=== PATIENT | female | born 1975 ===

== ENCOUNTER 2021-11-24 23:18 | Emergency (ER) | payer OTHER ==
--- OUTSIDE RECORDS SUMMARY | 2021-11-24 23:22 | XMS REPORT | Continuity of Care Document ---
:1975 Author Organization [facility] t Address [address] [place] [address] Care Team Providers Name Role Phone Wesley Attending Clinician Unavailable TERRELL_NAYELI_Francesco_Bhavana Attending Clinician Unavailable Selene Maya Attending Clinician Unavailable Taniya Attending Clinician Unavailable Michele Maya Attending Clinician [phone] Ivonne Dixon Attending Clinician Unavailable TERRELL_FAISAL_Cone_S Attending Clinician Unavailable ALEXIA Attending Clinician Unavailable Physician, Primary or Family Admitting Clinician Unavailabl e TERRELL_NAYELI_Francesco_Bhavana Admitting Clinician Unavailable Selene Maya Admitting Clinician Unavailable Ivonne Dixon Admitting Clinician Unavailable TERRELL_FAISAL_Cone_S Admitting Clinician Unavailable Payers Payer Name Policy Type Policy Number Effective Date Expiration Date [facility] [id number] Problems This patient has no known problems. Allergies, Adverse Reactions, Alerts Allergy Allergy Status Severity Reaction(s) Onset Inactive Treating Comm ents Source Name Type Date Date Clinician adhesive DA Active [facility] [place] latex DA Active [facility] [place] adhesive DA Active [facility] 3[facility] [place] latex DA Active [facility] [place] No Known DA Active U [facility]- [facility] Drug 1-04 [facility] [place] No Known DA Active U [facility] Contrast -04 [facility] [place] No Known DA Active U 2006- [facility] Drug -04 [facility] [place] No Known DA Active U 2006- [facility] Food 1-04 [facility] [place] TAPE DA Active U [facility] PLASTIC -04 [facility] [place] Medications This patient has no known medications. Procedures Procedure Date / Time Performed Performing Clinician Sour e [id number] 2021-10-19 00:00:00 [facility] [id number] 2021-10-19 00:00:00 [facility] [id number] 2021-10-19 00:00:00 [facility] [id number] 2021-10-19 00:00:00 [facility] [id number] 2021-10-19 00:00:00 [facility] [id number] 2021-10-19 00:00:00 [facility] Encounters Start End Encounter Admission Attending Care Care Encounter Source Date/Time Date/Time Type Type Clinicians Facility Department ID 2021-10-17 Inpatient EM MAL Olson [facility] [id number] [facility] 10:30:00 Ema [id number] [facility] 2021-11-06 2021-11-06 Outpatient GC_SWHAWPRC PRIV PRIV [id number] NPI:157 02:22:00 02:22:00 _Francesco_Bhavana [id number] 2021-11-04 2021-11-05 Inpatient EM MAL Maya MEDI.01 [id number] [facility] 07:22:00 10:58:00 Pedro 32 [facility] 2021-11-04 2021-11-05 Inpatient EM MAL Maya MEDI.01 [id number] [facility] 07:22:00 10:58:00 Pedro [id number] [facility] [place] 2021-11-03 2021-11-03 Emergency EM Taniya [facility] [id number] [facility] 21:42:00 21:42:00 Edu [id number] [facility] [place] 2021-10-26 2021-10-26 Outpatient [facility] PRIV PRIV [id number] NPI:157 03:24:00 03:24:00 _Fisher_H [id number] 2021-10-26 2021-10-26 Outpatient Francesco, PRIV PRIV [id number] [id number] 00:00:00 00:00:00 Pedro [id number] Michele [id number] 2021-10-24 2021-10-24 Outpatient [facility] PRIV PRIV [id number] NPI:157 02:56:00 02:56:00 _Fisher_H [id number] 2021-10-23 2021-10-23 Outpatient [facility] PRIV PRIV [id number] NPI:157 11:51:00 11:51:00 _Fisher_H [id number] 465 2021-10-23 2021-10-23 Outpatient Francesco PRIV PRIV [id number] 8-[id number] 00:00:00 00:00:00 Pedro [id number] [facility] [id number] [id number] 2021-10-21 2021-10-21 Inpatient EM Jamee Dixon [facility] MEDI.01 [id number] [facility] 06:12:00 21:01:00 21 [facility] [place] 2021-10-21 2021-10-21 Inpatient EM Jamee Dixon [facility] MEDI. [id number] [facility] 06:12:00 21:01:00 [id number] [facility] [place] 2021-10-19 2021-10-19 Inpatient EM Wesley [facility] MEDI. [id number] [facility] 12:01:00 09:03:00 Ema [id number] [facility] [place] 2021-10-17 2021-10-17 Outpatient [facility] PRIV PRIV [id number] NPI:157 04:20:00 04:20:00 _Fisher_H [id number] 2021-10-16 2021-10-16 Outpatient [facility] PRIV PRIV [id number] NPI:157 03:03:00 03:03:00 _Fisher_H 197348 [id number] 465 2021-10-15 2021-10-15 Inpatient EM Wesley, CHRISTIE OUTD [id number] [facility] 10:30:00 10:30:00 Ema [id number] [facility] 2021-10-15 2021-10-15 Outpatient GC_[facility] PRIV PRIV [id number] NPI:157 01:54:00 01:54:00 _Fisher_H [id number] 2021-10-15 2021-10-15 Outpatient Maya, PRIV PRIV [id number] e-a 00:00:00 00:00:00 Pedro ebb-11ec-b Michele [id number] 2021-10-15 2021-10-15 Outpatient Maya, PRIV PRIV [id number] 8-[id number] 00:00:00 00:00:00 Pedro [id number] [facility] [id number] 363virtua voorhees 2021-10-11 2021-10-11 Outpatient [facility] PRIV PRIV [id number] NPI:157 04:17:00 04:17:00 _Fisher_H [id number] 2021-10-10 2021-10-10 Outpatient GC_[facility] PRIV PRIV [id number] NPI:157 10:14:00 10:14:00 _Fisher_H 288753 [id number] 2021-10-08 2021-10-08 Outpatient GC_[facility] PRIV PRIV [id number] NPI:157 03:28:00 03:28:00 _Fisher_H [id number] 465 2021-10-08 2021-10-08 Outpatient Maya, PRIV PRIV [id number] e-a 00:00:00 00:00:00 Pedro [id number] [facility] [id number] 2021-10-03 Outpatient GC_[facility] PRIV PRIV [id number] NPI:157 03:32:00 03:32:00 _Fisher_H [id number] 2021-08-20 2021-08-20 Outpatient GC_[facility]WHAWPRC PRIV PRIV [id number] NPI:157 04:47:00 04:47:00 _Fisher_H 146907 [id number] 465 2021-08-13 2021-08-13 Outpatient GC_SWHATBIC PRIV PRIV [id number] NPI:157 12:01:00 12:01:00 _Cone_S [id number] 2021-07-19 2021-07-19 Outpatient ALEXIA [facility] [id number] [address] [place] 00:00:00 00:00:00 RAEANN 190 Method i 2021-07-19 2021-07-19 Outpatient ALEXIA [facility] [id number] [place] 00:00:00 00:00:00 RAEANN 160 Method i 2021-07-19 2021-07-19 Outpatient ALEXIA [facility] [id number] 921 [place] 00:00:00 00:00:00 RAEANN [address] 2021-07-05 2021-07-05 Outpatient ALEXIA [facility] [id number] 892 [place] 00:00:00 00:00:00 RAEANN [address] Results Test Description Test Time Test Comments Results Result Comments Source HGB HCT 2021-11-04 16:32:00 Test Item Value Reference Range Interpretation Comme nts HEMOGLOBIN (test code = HGB) 9.2 g/dL 10.1-13.8 L HEMATOCRIT (test code = HCT) 28.3 % 32.5-41.8 L HGB [id number] 07:07:00 Test Item Value Reference Range Interpretation Comments HEMOGLOBIN (test code = 6.8 g/dL 10.1-13.8 LL RESU LTS CALLED TO HGB) NERIS HARO BA CK & CONFIRMED? YBY F.LAB.KG 0706Results yue ified by repeat cuca sis HEMATOCRIT (test code = 21.2 % 32.5-41.8 L Resu lts verified by HCT) repeat analysis [id number] 03:18:00 Test Item Value Reference Range Interpretation Comments TROPONIN-I (test 7.1 pg/mL <51.4 N Please Note :New method is code = TROPI) in use for jason suring Troponin Jul 05 2021Units are pg/mL which differs from the prior testmethodology (ng/mL) by a factor of 100 0. CBC W/AUTO [id number] 02:52:00 Test Item Value Reference Range Interpretation Comments WHITE BLOOD CELL (test code = WBC) 9.8 K/mm3 6.5-12.3 N RED BLOOD CELL (test code = RBC) 2.86 M/mm3 3.51-4.69 L HEMOGLOBIN (test code = HGB) 9.1 g/dL 10.1-13.8 L HEMATOCRIT (test code = HCT) 28.3 % 32.5-41.8 L MEAN CELL VOLUME (test code = MCV) 99.0 fL 84.6-96.6 H MEAN CELL HGB (test code = MCH) 31.8 pg 27.3-33.9 N MEAN CELL HGB CONCETRATION (test 32.2 gm/dL 32.0-34.2 N code = MCHC) RED CELL DISTRIBUTION WIDTH (test 11.9 % 12.2-16.3 L code = RDW) PLATELET COUNT (test code = PLT) 379 K/mm3 134-363 H MEAN PLATELET VOLUME (test code = 10.9 fL 9.2-12.7 N MPV) NEUTROPHIL % (test code = NT%) 66.4 % 57.9-77.3 N LYMPHOCYTE % (test code = LY%) 22.7 % 14.5-29.7 N MONOCYTE % (test code = MO%) 9.1 % 3.6-10.2 N EOSINOPHIL % (test code = EO%) 0.6 % 0.0-3.0 N BASOPHIL % (test code = BA%) 0.9 % 0.1-0.9 N NEUTROPHIL # (test code = NT#) 6.5 K/mm3 LYMPHOCYTE # (test code = LY#) 2.2 K/mm3 MONOCYTE # (test code = MO#) 0.9 K/mm3 EOSINOPHIL # (test code = EO#) 0.06 K/mm3 BASOPHIL # (test code = BA#) 0.1 K/mm3 RBC MORPHOLOGY REQUIRED (test code NORMAL NORMAL = RBCM) PLATELET MORPHOLOGY REQUIRED (test NORMAL NORMAL code = PLTMR) - XR CHEST 1 [id number] 00:00:00 [facility] 1975 Sex: F Patient Name: KENYETTA TRONCOSO Unit No: [id number] EXAMS: CPT CODE: [id number] XR CHEST 1 V [id number] PROCEDURE INFORMATION: Exam: XR Chest Exam date and time: 11/04/2021 1:36 AM Age: 46 years old Clinical indication: Other: Tachy palpitations TECHNIQUE: Imaging protocol: XR of the chest. Views: 1 view. COMPARISON: CT ABD PELVIS W/CONT 10/21/2021 12:01 PM FINDINGS: Lungs: Inferior lungs are not included on the exam. The visualized lungs are clear. Pleural spaces: No pleural effusion. No pneumothorax. Heart/Mediastinum: Heart size is within normal limits. Vasculature is unremarkable. Bones/joints: No acute abnormality. IMPRESSION: No acute cardiopulmonary process identified. at 0202 Reported and signed by: Lalo Barraza MD CC: Edu Monahan DO Technologist: RT Leland Trnscrbd D/ (020) GCJonny.CPS Orig Print D/T: S: 11/04/2021 (0203) [facility] NAME: KENYETTA TRONCOSO Radiology Department PHYS: Edu Mosley DO [address] : 1975 AGE: 46 SEX: F [place], [place] [address] [id number] LOC: BILL PHONE #: [phone] EXAM DATE: 11/04/2021 STATUS: REG ER FAX #: [phone] [facility] NO: [id number] Page 1 Signed ReportBASIC METABOLIC [id number] 23:55:00 Test Item Value Reference Range Interpretation Comments SODIUM (test code = NA) 134 mEq/L 135-145 L POTASSIUM (test code = K) 3.6 mEq/L 3.5-5.0 N CHLORIDE (test code = CL) 99 mEq/L 100-115 L CARBON DIOXIDE (test code = CO2) 26 mEq/L 22-31 N ANION GAP (test code = GAP) 12.20 10-20 N GLUCOSE (test code = GLU) 131 mg/dL 65-110 H BLOOD UREA NITROGEN (test code = 12 mg/dL 7-18 N BUN) GLOMERULAR FILTRATION RATE (test 67 ml/min >60 N code = GFR) CREATININE (test code = CREAT) 0.9 mg/dL 0.5-1.0 N CALCIUM (test code = CA) 8.1 mg/dL 8.4-10.2 L PROTHROMBIN [id number] 23:46:00 Test Item Value Reference Range Interpretation Comments PROTHROMBIN TIME PATIENT (test code 13.4 secs 10.1-12.3 H = PTP) THROMBOPLASTIN TIME [id number] 23:46:00 Test Item Value Reference Range Interpretation Comments THROMBOPLASTIN TIME PARTIAL (test 32.0 secs 22-38 N code = PTT) CBC W/AUTO [id number] 23:40:00 Test Item Value Reference Range Interpretation Comments WHITE BLOOD CELL (test code = WBC) 7.5 K/mm3 6.5-12.3 N RED BLOOD CELL (test code = RBC) 3.56 M/mm3 3.51-4.69 N HEMOGLOBIN (test code = HGB) 11.2 g/dL 10.1-13.8 N HEMATOCRIT (test code = HCT) 33.5 % 32.5-41.8 N MEAN CELL VOLUME (test code = MCV) 94.1 fL 84.6-96.6 N MEAN CELL HGB (test code = MCH) 31.5 pg 27.3-33.9 N MEAN CELL HGB CONCETRATION (test 33.4 gm/dL 32.0-34.2 N code = MCHC) RED CELL DISTRIBUTION WIDTH (test 11.7 % 12.2-16.3 L code = RDW) PLATELET COUNT (test code = PLT) 628 K/mm3 134-363 H MEAN PLATELET VOLUME (test code = 10.5 fL 9.2-12.7 N MPV) NEUTROPHIL % (test code = NT%) 58.1 % 57.9-77.3 N LYMPHOCYTE % (test code = LY%) 25.4 % 14.5-29.7 N MONOCYTE % (test code = MO%) 13.4 % 3.6-10.2 H EOSINOPHIL % (test code = EO%) 1.5 % 0.0-3.0 N BASOPHIL % (test code = BA%) 1.1 % 0.1-0.9 H NEUTROPHIL # (test code = NT#) 4.4 K/mm3 LYMPHOCYTE # (test code = LY#) 1.9 K/mm3 MONOCYTE # (test code = MO#) 1.0 K/mm3 EOSINOPHIL # (test code = EO#) 0.11 K/mm3 BASOPHIL # (test code = BA#) 0.1 K/mm3 RBC MORPHOLOGY REQUIRED (test code NORMAL NORMAL = RBCM) PLATELET MORPHOLOGY REQUIRED (test NORMAL NORMAL code = PLTMR) [id number] 17:31:00 Test Item Value Reference Range Interpretation Comments SURGICAL (test code = SR) R UN DATE: 10/22/21 [facility] PAGE 1 RUN TIME: 1731 Specimen Inquiry RUN USER: INTERFACE P ATIENT: KENYETTA TRONCOSO LOC: JESSICA #: [id number] AGE/SX: 45/F ROOM: [facility] RE10/21/21REG DR: Jamee Dixon MD : 71 BED: A DIS: 10/21/21 STATUS: DIS IN TLOC: SPEC #: [id number] RECD: 10/19/21 STATUS: [place] #: [id number] DARIELA: 10/19/[address]: Ema Olson MD ENTERED: 10/19/21 SP TYPE: SURGICAL OTHR DR: No Primary or Family Physician Pedro Maya MDORDERED: ANATOMIC SPEC, SPEC TRACK, [id number] COPIES TO: No Primary or Family Physician Ema Olson MD [address] [id number] Pedro Maya MD [address] [id number] PROCEDURES: [id number] (10/19/21) TISSUES: A. UTERUS W/WO TUBES OVARIES NON NEOPLASTIC/PROLAPSE - UTERUS CERVIX TUBES FINAL DIAGNOSIS UTERUS AND BILATERAL FALLOPIAN TUBES, HYSTERECTOMY WITH BILATERAL SALPINGECTOMY:- weakly proliferative endometrium; negative for hyperplasia or malignancy. - adenomyosis.- cervix with the nabothian cysts, mild acute and chronic inflammation; negative fordysplasia or malignancy.- bilateral fallopian tubes with no diagnostic abnormalities. GROSS DESCRIPTION Received in formalin labeled with the patient's name, MRN, date of , "uterus, cervixand tubes" consists of a hysterectomy specimen with attached fallopian tubes weighing 132g. The uterus measures 9 x 6 x 5.4 cm and has a 3.5 x 3.5 cm smooth white ectocervix witha 1 cm slit-like os and a 3 cm endocervical canal. Bivalving reveals a hemorrhagic 5 x 3.5cm endometrial cavity with an endometrial thickness of 0.1 cm. There are focal punctatehemorrhages within the myometrium. The serosal surface is larsen pink and smooth. Thefallopian tubes measure 5.5 x 0.5 cm and are unremarkable. Manager Intermediate sections are submitted as follows: A1 anterior cervix, A2 anterior loweruterine segment, A3 anterior endomyometrium, A4 posterior cervix, A5 posterior loweruterine segment, A6 posterior endomyometrium, A7 myometrium with punctate hemorrhage, A8 CONTINUED ON NEXT PAGE R UN DATE: 10/22/21 [facility] PAGE 2 RUN TIME: 1732 Specimen Inquiry RUN USER: INTERFACE S PEC #: [id number] PATIENT: TRONCOSOKENYETTA KAE #[id number] (Continued) GROSS DESCRIPTION (Continued) right fallopian tube, A9 left fallopian tube. Technical component performed at [facility],[address], [place] [address] Unless gross only, the diagnosis is based upon microscopic examination.Immunohistochemistr y: This test was developed and its performance characteristicsdetermined by this laboratory. It has not been approved nor does it need approval by [place] FDA. Appropriate positive and negative controls are reviewed and judged to beacceptable. This laboratory is certified under the Clinical Laboratory ImprovementAmendments (CLIA-88) as qualified to perform high complexity clinical laboratory testing. CLINICAL INFORMATION TIME OUT OF BODY 1310, TIME IN FORMALIN 1420, ANONYMOUS PELVIC PAIN, ---- Signed SIGNATURE ON FILE Joan Sanchez 10/22/21 1731 END OF REPORT COMPREHENSIVE METABOLIC [id number] 11:42:00 Test Item Value Reference Range Interpretation Comments SODIUM (test code = NA) 137 mEq/L 135-145 N POTASSIUM (test code = K) 3.7 mEq/L 3.5-5.0 N CHLORIDE (test code = CL) 100 mEq/L 100-115 N CARBON DIOXIDE (test code = CO2) 33 mEq/L 22-31 H ANION GAP (test code = GAP) 7.30 10-20 L GLUCOSE (test code = GLU) 121 mg/dL 65-110 H BLOOD UREA NITROGEN (test code = 6 mg/dL 7-18 L BUN) GLOMERULAR FILTRATION RATE (test 90 ml/min >60 N code = GFR) CREATININE (test code = CREAT) 0.7 mg/dL 0.5-1.0 N TOTAL PROTEIN (test code = PROT) 6.1 gm/dL 6.3-8.2 L ALBUMIN (test code = ALB) 3.0 gm/dL 3.4-4.8 L CALCIUM (test code = CA) 7.3 mg/dL 8.4-10.2 L BILIRUBIN TOTAL (test code = BILT) 0.3 mg/dL 0.2-1.0 N SGOT/AST (test code = AST) 27 units/L 15-37 N SGPT/ALT (test code = ALT) 21 units/L 12-78 N ALKALINE PHOSPHATASE TOTAL (test 47 units/L 46-116 N code = ALKP) CBC W/AUTO [id number] 05:45:00 Test Item Value Reference Range Interpretation Comments WHITE BLOOD CELL (test code = WBC) 7.6 K/mm3 6.5-12.3 N RED BLOOD CELL (test code = RBC) 3.10 M/mm3 3.51-4.69 L HEMOGLOBIN (test code = HGB) 9.9 g/dL 10.1-13.8 L HEMATOCRIT (test code = HCT) 31.5 % 32.5-41.8 L MEAN CELL VOLUME (test code = MCV) 101.6 fL 84.6-96.6 H MEAN CELL HGB (test code = MCH) 31.9 pg 27.3-33.9 N MEAN CELL HGB CONCETRATION (test 31.4 gm/dL 32.0-34.2 L code = MCHC) RED CELL DISTRIBUTION WIDTH (test 12.7 % 12.2-16.3 N code = RDW) PLATELET COUNT (test code = PLT) 206 K/mm3 134-363 N MEAN PLATELET VOLUME (test code = 10.9 fL 9.2-12.7 N MPV) NEUTROPHIL % (test code = NT%) 69.6 % 57.9-77.3 N LYMPHOCYTE % (test code = LY%) 17.2 % 14.5-29.7 N MONOCYTE % (test code = MO%) 11.5 % 3.6-10.2 H EOSINOPHIL % (test code = EO%) 0.7 % 0.0-3.0 N BASOPHIL % (test code = BA%) 0.7 % 0.1-0.9 N NEUTROPHIL # (test code = NT#) 5.3 K/mm3 LYMPHOCYTE # (test code = LY#) 1.3 K/mm3 MONOCYTE # (test code = MO#) 0.9 K/mm3 EOSINOPHIL # (test code = EO#) 0.05 K/mm3 BASOPHIL # (test code = BA#) 0.1 K/mm3 RBC MORPHOLOGY REQUIRED (test code NORMAL NORMAL = RBCM) PLATELET MORPHOLOGY REQUIRED (test NORMAL NORMAL code = PLTMR) - CT ABD PELVIS [id number] 00:00:00 [facility] 1975 Sex: F Patient Name: KENYETTA TRONCOSO Unit No: [id number] EXAMS: CPT CODE: [id number] CT ABD PELVIS W/CONT 93130 Radiation Dose CTDIVOL = 4.45 (mGy): DLP = 232.17 (mGy-cm) PROCEDUREINFORMATION: Exam: CT Abdomen And Pelvis With Contrast Exam date and time: 10/21/2021 12:01 PM Age: 45 years old Clinical indication: Abdominal pain; Additional info: Uncontrolled pain; Historyof cervical dysplasia and abnormal uterine bleeding with total laparoscopic hysterectomy and bilateral salpingectomy on 10/19/2021 TECHNIQUE: Imaging protocol: Computed tomography of the abdomen and pelvis with contrast. Radiation optimization: All CT scans at this facility use at least one of these dose optimization techniques: automated exposure control; mA and/or kV adjustment per patient size (includes targeted exams where dose is matched to clinical indication); or iterative reconstruction. Contrast material: ISOVUE 300; Contrast volume: 100 ml; Contrast route: INTRAVENOUS (IV); COMPARISON: No relevant prior studies available. RADIATION DOSE METRICS: CTDI volume (mGy): 4.45 Total DLP (mGy-cm): 232.17 FINDINGS: Lungs: Mild bilateral subpleural platelike atelectasis with no pulmonary edema or consolidation. Pleural spaces: No pleural effusion. No pneumothorax. Heart: No pericardial thickening or effusion. Liver: No cirrhotic change or enhancing liver lesion. Gallbladder and bile ducts: No calcified stones. No ductal dilation. Pancreas: No focal pancreatic lesion. Spleen: Unremarkable spleen. Adrenal glands: No adrenal lesions. Kidneys and ureters: Bilateral nonobstructive nephrolithiasis without ureteral calculi, hydronephrosis or hydroureter. No [facility] NAME: KENYETTA TRONCOSO Radiology Department PHYS: Amy Fallon MD [address] : 1975 AGE: 45 SEX: F [place], [place] [address] LOC: F.2600 A PHONE #: [phone] EXAM DATE: 10/21/2021 STATUS: ADM IN FAX #: [phone] RAD NO: [id number] Page 1 Signed Report 1 Patient Name: KENYETTA TRONCOSO Unit No: [id number] EXAMS: CPT CODE: [id number] CT ABD PELVIS W/CONT 40914 <Continued> enhancing renal lesions. Stomach and bowel: Large volume colonic fecal material diffusely. Appendix: No evidence of appendicitis. Intraperitoneal space: Moderate volume pneumoperitoneum outlining the anterior perihepatic space and falciform ligament in a patient with known recent laparoscopic surgery. Vasculature: Unremarkable. No abdominal aortic aneurysm. Lymph nodes: No adenopathy. Urinary bladder: The bladder is decompressed with a Pérez catheter. Reproductive: Hysterectomy/BSO changes in keeping with recent surgical history. An approximately 5.8 x 5.5 x 4.5 cm (75 cc) intermediate density collection is noted at the hysterectomy bed. No active extravasation or pseudoaneurysm seen by CT. Bones/joints: Low volume hypodense free pelvic fluid with severe bilateral pelvic wall andpre sacral edema. No destructive bone lesions. Mild spondylosis at the lower thoracic spine. Soft tissues: Partially imaged bilateral breast augmentation with no visible complication. Other f indings: Low volume postoperative edema and air is seen involving the mons pubis in keeping with recent surgery without organized fluid collection. IMPRESSION: 1. Hysterectomy and bilateral salpingo-oophorectomy with roughly 5.8 cm deep pelvic hematoma at the hysterectomy bed. 2. No active extravasation or pseudoaneurysm noted by CT. 3. Bilateral pelvic wall and presacral soft tissue edema in keeping with recent procedure. 4. Residual moderate volume postoperative pneumoperitoneum to be followed to resolution. No signs of peritonitis. 5. Bilateral nonobstructive nephrolithiasis. 6. Constipation. at 1344 Reported and signed by: Anjel Gonzalez MD [facility] NAME: KENYETTA TRONCOSO Radiology Department PHYS: Amy Fallon MD [address] : [birth year] AGE: 45 SEX: F [place] [address] LOC: F.2600 A PHONE #: [phone] EXAM DATE: 10/21/2021 STATUS: ADM IN FAX #: [phone] RAD NO: [id number] Page 2 Signed Report 1 Patient Name: KARYNAKENYETTA PAL Unit No: [id number] EXAMS: CPT CODE: [id number] CT ABD PELVIS W/CONT 93215 <Continued> CC: Ema Olson MD; Jamee Dixon MD; Amy Carrington MD Technologist: Tigre Huitron, RT CTDI: 4.45 DLP: 232.17 Trnscrbd D/ (1344) GCD.CPS [facility] NAME: TRONCOSOKENYETTA Radiology Department PHYS: Amy Fallon MD [address] : 1975 AGE: 45 SEX: F [place] [address] LOC: F.2600 A PHONE #: [phone] EXAM DATE: 10/21/2021 STATUS: ADM IN FAX #: [phone] RAD NO: [id number] Page 3 Signed Report 1 Patient Name: KARYNAKENYETTA KAE Unit No: [id number] EXAMS: CPT CODE: [id number] CT ABD PELVIS W/CONT 99083 <Continued> Orig Print D/T: S: 10/21/2021 (1345) [facility] NAME: KENYETTA TRONCOSO Radiology Department PHYS: Amy Fallon MD [address] : 1975 AGE: 45 SEX: F [place], [place] [address] LOC: FManuel A PHONE #: [phone] EXAM DATE: 10/21/2021 STATUS: ADM IN FAX #: [phone] RAD NO: [id number] Page 4 Signed Report 1HGB [id number] 04:45:00 Test Item Value Reference Range Interpretation Comments HEMOGLOBIN (test code = HGB) 10.2 g/dL 10.1-13.8 N HEMATOCRIT (test code = HCT) 31.6 % 32.5-41.8 L T3 [id number] 19:17:00 Test Item Value Reference Range Interpretation Comments T3 FREE (test code = T3F) 2.40 pg/mL 2.18-3.98 N : *(Hit ENTER to Con't) .T4 [id number] 19:17:00 Test Item Value Reference Range Interpretation Comments T4 FREE (test code = T4F) 1.61 ng/dL 0.76-1.46 H : *(Hit ENTER to Con't) .COVID 19 Asymptomatic IH [id number] 22:41:00 Test Item Value Reference Range Interpretation Comments COVID 19 NEGATIVE NEGATIVE This test has b een Asymptomatic IH AG authorize d only for the (test code = detection ofpro teins from COVNONPUIAG) SARS-CoV-2, not for any other viruses orpathogens. N egative results should be treated as presumptive andconfirmed wi th a molecular assay , if necessary for patientmanageme nt. Negative result s do not rule out COVID- 19 andshould not b e used as the sole basis for treatment orpat ient management deci sions, including infec tion controldecision s. Negative result s should be considered i n thecontext of a patient's recent exposure s, history and thepresence of clinical signs and symptoms consis tent withCOVID-19. T his test has not been FD A cleared or approved; th e test hasbeen authorjacky orr by FDA under an Emerge ncy Use Authorization(E UA) for use by elo joel certified under the CLIA thatmeet the re quirements to perform mode rate, high or waivedcomple xity tests. This ana t is authorized for use at thePoint of Car e (POC), i.e., in patien t care settingsoperati ng under a CLIA Certificat e of Waiver, Certifi jaguar ofCompliance, o r Certificate of Accreditation. This test is only authori kirby for the duration of thedeclaration that circumstances e xist justifying theauthorizatio n of emergency use o f in vitro diagnostic test sfor detection and/o r diagnosis of CO VID-19 under Etnqtsp70 4(b)(1) of the Act, 21 U.S .C. 360bbb-3(b)(1), unless theauthorizatio n is terminated or r evoked sooner. CBC W/AUTO [id number] 16:49:00 Test Item Value Reference Range Interpretation Comments WHITE BLOOD CELL (test code = WBC) 7.4 K/mm3 6.5-12.3 N RED BLOOD CELL (test code = RBC) 4.26 M/mm3 3.51-4.69 N HEMOGLOBIN (test code = HGB) 13.5 g/dL 10.1-13.8 N HEMATOCRIT (test code = HCT) 41.8 % 32.5-41.8 N MEAN CELL VOLUME (test code = MCV) 98.1 fL 84.6-96.6 H MEAN CELL HGB (test code = MCH) 31.7 pg 27.3-33.9 N MEAN CELL HGB CONCETRATION (test 32.3 gm/dL 32.0-34.2 N code = MCHC) RED CELL DISTRIBUTION WIDTH (test 12.7 % 12.2-16.3 N code = RDW) PLATELET COUNT (test code = PLT) 339 K/mm3 134-363 N MEAN PLATELET VOLUME (test code = 11.7 fL 9.2-12.7 N MPV) NEUTROPHIL % (test code = NT%) 69.6 % 57.9-77.3 N LYMPHOCYTE % (test code = LY%) 19.3 % 14.5-29.7 N MONOCYTE % (test code = MO%) 9.4 % 3.6-10.2 N EOSINOPHIL % (test code = EO%) 0.8 % 0.0-3.0 N BASOPHIL % (test code = BA%) 0.8 % 0.1-0.9 N NEUTROPHIL # (test code = NT#) 5.1 K/mm3 LYMPHOCYTE # (test code = LY#) 1.4 K/mm3 MONOCYTE # (test code = MO#) 0.7 K/mm3 EOSINOPHIL # (test code = EO#) 0.06 K/mm3 BASOPHIL # (test code = BA#) 0.1 K/mm3 RBC MORPHOLOGY REQUIRED (test code NORMAL NORMAL = RBCM) PLATELET MORPHOLOGY REQUIRED (test NORMAL NORMAL code = PLTMR) HCG SERUM [id number] 16:06:00 Test Item Value Reference Range Interpretation Comments HCG SERUM QUAL (test code = HCGQL) NEGATIVE PROTHROMBIN [id number] 15:55:00 Test Item Value Reference Range Interpretation Comments PROTHROMBIN TIME PATIENT (test code 10.6 secs 10.1-12.3 N = PTP) THROMBOPLASTIN TIME [id number] 15:55:00 Test Item Value Reference Range Interpretation Comments THROMBOPLASTIN TIME PARTIAL (test 32.8 secs 22-38 N code = PTT) BASIC METABOLIC [id number] 15:33:00 Test Item Value Reference Range Interpretation Comments SODIUM (test code = NA) 137 mEq/L 135-145 N POTASSIUM (test code = K) 4.1 mEq/L 3.5-5.0 N CHLORIDE (test code = CL) 100 mEq/L 100-115 N CARBON DIOXIDE (test code = CO2) 29 mEq/L 22-31 N ANION GAP (test code = GAP) 12.00 10-20 N GLUCOSE (test code = GLU) 91 mg/dL 65-110 N BLOOD UREA NITROGEN (test code = 15 mg/dL 7-18 N BUN) GLOMERULAR FILTRATION RATE (test 77 ml/min >60 N code = GFR) CREATININE (test code = CREAT) 0.8 mg/dL 0.5-1.0 N CALCIUM (test code = CA) 8.2 mg/dL 8.4-10.2 L URINALYSIS [id number] 12:01:00 Test Item Value Reference Range Interpretation Comments UA COLOR (test code = COLU) YELLOW YELLOW UA APPEARANCE (test code = CLEAR CLEAR APPU) UA GLUCOSE DIPSTICK (test code NEGATIVE NEG = DGLUU) UA BILIRUBIN DIPSTICK (test NEGATIVE NEG code = BILU) UA KETONE DIPSTICK (test code NEGATIVE NEG = KETU) UA SPECIFIC GRAVITY (test code 1.008 1.001-1.035 N = SGU) UA BLOOD DIPSTICK (test code = NEG NEG RAEANN) UA PH DIPSTICK (test code = 7.0 5-9 GUADALUPE) UA PROTEIN DIPSTICK (test code NEGATIVE NEG = PROU) UA UROBILINIOGEN DIPSTICK NEGATIVE mg/dL NEG (test code = URO) UA NITRITE DIPSTICK (test code NEG NEG = NEENA) UA LEUKOCYTE ESTERASE DIPSTICK NEG NEG (test code = LEUU) UA WBC (test code = WBCU) 0-2 #/hpf NONE SEEN UA RBC (test code = RBCU) 0-2 #/hpf NONE SEEN UA EPITHELIAL CELLS (test code FEW #/HPF RARE-FEW = EPIU) UA BACTERIA (test code = BACU) RARE /HPF RARE-FEW UA MUCUS (test code = MUCU) RARE NONE SEEN URINE SAMPLE: CLEAN CATCH
[2021-11-24] MEDS ORDERED: HYDROMORPHONE HCL 1 MG/ML INJ ONE (23:33)
[2021-11-24] MEDS ORDERED: NA CHLORIDE 0.9% 1,000 ML ONE (23:34)
[2021-11-24 23:51] LABS: Absolute Lymphocytes (CBC) 2.8 K/uL (0.7-4.9); Lymphocytes % 50.4 % (15.3-44.8); MPV 8.4 fL (7.6-11.3); RBC Red Blood Cell Count 3.31 M/uL (3.86-4.86)
[2021-11-24 23:52] LABS: Protime INR 1.01
[2021-11-25 00:02] LABS: Potassium 3.5 mmol/L (3.5-5.1)
--- NOTE | 2021-11-25 00:32 | ER ---
Nurse's Notes [facility] Name: Stefanie Herrera Age: 46 yrs Sex: Female : 1975 Arrival Date: 11/24/2021 Time: 23:25 Bed 17 Private MD: Diagnosis: Displaced comminuted fracture of shaft of right tibia, initial encounter for closed fracture;Proximal and Distal Right Fibula Fracture Presentation: 11/24 23:25 Chief complaint: EMS states: they were toned out for report of pt having broken her bb right leg when stepping off of a boat approx 30 mins prior to arrival. Coronavirus screen: At this time, the client does not indicate any symptoms associated with coronavirus-19. Ebola Screen: No symptoms or risks identified at this time. Initial Sepsis Screen: Does the patient meet any 2 criteria? No. Patient's initial sepsis screen is negative. Does the patient have a suspected source of infection? No. Patient's initial sepsis screen is negative. Risk Assessment: Do you want to hurt yourself or someone else? Patient reports no desire to harm self or others. Onset of symptoms was November 24, 2021. 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 - Social history:: Smoking status: unknown. Screenin:30 Abuse screen: Denies threats or abuse. Nutritional screening: No deficits noted. vc1 Tuberculosis screening: No symptoms or risk factors identified. Fall Risk None identified. Assessment: 23:30 General: Appears in no apparent distress. uncomfortable, Behavior is crying, Smells of vc1 alcohol. Pain: Complains of pain in right garner and anterior aspect of right ankle Pain does not radiate. Pain currently is 10 out of 10 on a pain scale. Quality of pain is described as sharp, Aggravated by repositioning, weight bearing, Noted to be crying, grimacing, resistant to movement. Neuro: Level of Consciousness is awake, alert, obeys commands, Oriented to person, place, time, situation, Appropriate for age. Cardiovascular: No deficits noted. Respiratory: No deficits noted. Musculoskeletal: Circulation, motion, and sensation intact. Range of motion: limited in right ankle. Musculoskeletal: Swelling present in anterior aspect of right ankle. Injury Description:. 11/25 00:30 Reassessment: No changes from previously documented assessment. Patient and/or family vc1 updated on plan of care and expected duration. Pain level reassessed. Patient states symptoms have not improved. 01:20 Reassessment: Attempting to call report, no answer will call back. vc1 01:26 Reassessment: Attempted to call report, on hold for over 10 minutes, will call back. vc1 01:30 Reassessment: No changes from previously documented assessment. Patient and/or family vc1 updated on plan of care and expected duration. Pain level reassessed. Patient states symptoms have not improved. 01:44 Reassessment: [facility] attempt to call [facility], the phone is answered by vc1 a man that immediately says hold please. Will try again. Vital Signs: 11/24 23:25 BP 155 / 111; Pulse 113; Resp 20 S; Temp 98.5(O); Pulse Ox 94% on R/A; Weight 51.26 kg bb (R); Height 5 ft. 3 in. (160.02 cm) (R); Pain 10/10; 11/25 00:00 BP 147 / 98; Pulse 114; Resp 20; Pulse Ox 95% on R/A; vc1 01:00 BP 159 / 95; Pulse 123; Resp 19; Pulse Ox 97% on R/A; vc1 01:30 BP 135 / 85; Pulse 120; Resp 18; Pulse Ox 98% ; vc1 01:30 BP 135 / 85; Pulse 120; Resp 18; Pulse Ox 98% ; vc1 11/24 23:25 Body Mass Index 20.02 (51.26 kg, 160.02 cm) ED Course: 11/24 23:25 Patient arrived in ED. mw2 23:25 Froilan Orellana PA is PHCP. cp 23:25 Myles Gómez MD is Attending Physician. cp 23:30 Patient has correct armband on for positive identification. Bed in low position. Call vc1 light in reach. [place] operator on. Pulse ox on. 23:33 Triage completed. bb 23:33 Porsha Pham, RN is Primary Nurse. vc1 23:33 Arm band placed on Patient placed in an exam room, on a stretcher, on pulse oximetry. bb 23:35 Initial lab(s) drawn, by va, sent to lab. Inserted saline lock: 20 gauge in right bb antecubital area, using aseptic technique. Blood collected. 11/25 00:14 XRAY Tib Fib RIGHT In Process Unspecified. EDMS 00:38 initiated a transfer with Brenda Schultz from [facility]. [facility] 01:05 Orthoglass splint: Posterior long leg splint applied on right leg. stirrup splint oe applied on right leg. 01:07 administrative approval given by Brenda Schultz/ patient has been accepted to [address] to the ER/ Dr. Marie accepted the patient in transfer/ report to be called to [phone]. 01:51 No provider procedures requiring assistance completed. Patient transferred, IV remains vc1 in place. Administered Medications: 11/24 23:32 Drug: NS 0.9% 1000 ml Route: IV; Rate: 1 bolus; Site: right antecubital; vc1 11/25 01:54 Follow up: IV Status: Completed infusion; IV Intake: 1000ml vc1 11/24 23:33 Drug: Dilaudid (HYDROmorphone) 1 mg Route: IVP; Site: right antecubital; vc1 11/25 01:54 Follow up: Response: No adverse reaction; Marked relief of symptoms; Pain is decreased vc1 01:00 Drug: Dilaudid (HYDROmorphone) 1 mg Route: IVP; Site: right antecubital; vc1 01:30 Follow up: BP 135 / 85; Pulse 120 bpm; Resp 18 bpm; Pulse Ox 98% ; Response: No adverse vc1 reaction; Pain is decreased; RASS: Alert and Calm (0) Intake: 01:54 IV: 1000ml; Total: 1000ml. vc1 Outcome: 00:31 ER care complete, transfer ordered by MD. ryan 01:51 Transferred by ground EMS to [facility], Transfer form completed. X-rays sent vc1 w/ patient. 01:51 Condition: good 01:51 Instructed on the need for transfer. 01:55 Patient left the ED. vc1 Signatures: Dispatcher [employer] Mirian Mason, RN RN bb Froilan Orellana PA PA cp [place], [place] oe [place], MyKena mw2 Porsha Pham RN RN vc1
--- NOTE | 2021-11-25 00:32 | EDPHYS ---
Physician Documentation [facility] Name: Stefanie Herrera Age: 46 yrs Sex: Female : 1975 Arrival Date: 11/24/2021 Time: 23:25 Bed 17 Private MD: ED Physician Myles Gómez HPI: 11/24 23:30 This 46 yrs old Female presents to ER via EMS with complaints of Right Lower Leg Injury.cp 23:30 The patient presents with a deformity, an injury, pain, that is acute. The complaints cp affect the right garner. Context: resulted from a mis-step, on a slippery surface, the patient is not able to bear weight, the patient is not able to ambulate, while stepping onto boat. Onset: The symptoms/episode began/occurred just prior to arrival. Associated signs and symptoms: The patient has no apparent associated signs or symptoms. Treatment prior to arrival includes: splinting the affected extremity. 23:30 Patient brought to ED via EMS after reported injury to right lower leg. Patient reports cp slipping, with right leg becoming trapped between boat and dock. 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 - Social history:: Smoking status: unknown. ROS: 23:35 MS/extremity: Positive for injury or acute deformity, pain, swelling, tenderness, of cp the right lower leg. 23:35 Constitutional: Negative for body aches, chills, fever. cp 23:35 Neck: Negative for pain with movement, pain at rest, stiffness. 23:35 Cardiovascular: Negative for chest pain, palpitations. 23:35 Respiratory: Negative for cough, shortness of breath, wheezing. 23:35 Abdomen/GI: Negative for nausea, vomiting, and diarrhea. 23:35 Back: Negative for pain at rest, pain with movement. 23:35 Neuro: Negative for altered mental status, headache, loss of consciousness, weakness. 23:35 All other systems are negative. Exam: 23:40 Constitutional: The patient appears in no acute distress, alert, awake, cp non-diaphoretic, non-toxic, well developed, well nourished. 23:40 Head/Face: Normocephalic, atraumatic. cp 23:40 Chest/axilla: Inspection: normal, Palpation: is normal, no crepitus, no tenderness. 23:40 Cardiovascular: Rate: tachycardic, Rhythm: regular. 23:40 Respiratory: the patient does not display signs of respiratory distress, Respirations: normal, no use of accessory muscles, no retractions, labored breathing, is not present, Breath sounds: are clear throughout, no decreased breath sounds, no stridor, no wheezing. 23:40 Abdomen/GI: Exam negative for discomfort, distension, guarding. 23:40 Back: vertebral tenderness, is not appreciated. 23:40 Musculoskeletal/extremity: Extremities: grossly normal except: noted in the right lower leg: deformity, ecchymosis, pain, swelling, tenderness, ROM: limited passive range of motion, in the right ankle, Pulses: noted to be 2+ in the right dorsalis pedis artery, the right lower leg Severe pain noted. 23:40 Neuro: Orientation: to person, place \T\ time. Mentation: is normal. Vital Signs: 23:25 BP 155 / 111; Pulse 113; Resp 20 S; Temp 98.5(O); Pulse Ox 94% on R/A; Weight 51.26 kg bb (R); Height 5 ft. 3 in. (160.02 cm) (R); Pain 10/10; 11/25 00:00 BP 147 / 98; Pulse 114; Resp 20; Pulse Ox 95% on R/A; vc1 01:00 BP 159 / 95; Pulse 123; Resp 19; Pulse Ox 97% on R/A; vc1 01:30 BP 135 / 85; Pulse 120; Resp 18; Pulse Ox 98% ; vc1 01:30 BP 135 / 85; Pulse 120; Resp 18; Pulse Ox 98% ; vc1 05/07 23:25 Body Mass Index 20.02 (51.26 kg, 160.02 cm) bb Procedures: 01:00 Splinting: Splint applied to right leg using Orthoglass splint, posterior long leg and cp stirrup. applied by myself. tech. Examined by nj, post splint application: neurovascular intact, Patient tolerated well. MDM: 11/24 23:27 Patient medically screened. cp 11/25 00:00 Differential diagnosis: dislocation, open fracture, closed fracture, contusion. cp 00:20 Physician consultation: Tony Courtney MD was called at 00:20, left message on voicemail. cp 00:30 Physician consultation: Tony Courtney MD was contacted at 00:30, regarding consult, patient's condition, after a discussion of the case, a recommendation for transfer for higher level of care is made, due to significance of patient's injuries. 00:30 Data reviewed: vital signs, nurses notes, lab test result(s), radiologic studies, plain cp films. 00:30 Test interpretation: by ED physician or midlevel provider: plain radiologic studies. cp Counseling: I had a detailed discussion with the patient and/or guardian regarding: the historical points, exam findings, and any diagnostic results supporting the discharge/admit diagnosis, lab results, radiology results, the need to transfer to another facility, for higher level of care. 01:45 Physician consultation: regarding regarding transfer, to [facility]. accepting cp physician will be DR Marie. 01:45 Response to treatment: the patient's symptoms have markedly improved after treatment. 11/24 23:26 Order name: Basic Metabolic Panel; Complete Time: 01:04 11/25 01:04 Interpretation: Normal except: GFR 79. cp 11/24 23:26 Order name: CBC with Diff; Complete Time: 01:04 cp 11/25 01:05 Interpretation: Normal except: RBC 3.31; HGB 9.9; HCT 30.0; KENDRA% 34.1; LYM% 50.4; BASO% cp 2.1. 11/24 23:26 Order name: Type And Screen cp 11/24 23:27 Order name: PT-INR; Complete Time: 01:04 cp 11/25 01:17 Order name: SARS-COV-2 RT PCR EDMS 11/24 23:26 Order name: Labs collected and sent; Complete Time: 00:20 cp 11/24 23:31 Order name: XRAY Tib Fib RIGHT cp 11/25 01:43 Order name: ABO/RH no charge EDMS Administered Medications: 11/24 23:32 Drug: NS 0.9% 1000 ml Route: IV; Rate: 1 bolus; Site: right antecubital; vc1 11/25 01:54 Follow up: IV Status: Completed infusion; IV Intake: 1000ml vc1 11/24 23:33 Drug: Dilaudid (HYDROmorphone) 1 mg Route: IVP; Site: right antecubital; vc1 11/25 01:54 Follow up: Response: No adverse reaction; Marked relief of symptoms; Pain is decreased vc1 01:00 Drug: Dilaudid (HYDROmorphone) 1 mg Route: IVP; Site: right antecubital; vc1 01:30 Follow up: BP 135 / 85; Pulse 120 bpm; Resp 18 bpm; Pulse Ox 98% ; Response: No adverse vc1 reaction; Pain is decreased; RASS: Alert and Calm (0) Disposition: 03:19 Co-signature as Attending Physician, Myles Gómez MD. mh7 Disposition Summary: 11/25/21 00:31 Transfer Ordered Transfer Location: [facility] cp Reason: Higher level of care cp Condition: Stable cp Problem: new cp Symptoms: have improved cp Accepting Physician: DR Odilia Marie(11/25/21 01:55) vc1 Diagnosis - Displaced comminuted fracture of shaft of right tibia, initial encounter for closed cp fracture - Proximal and Distal Right Fibula Fracture cp Forms: - Medication Reconciliation Form cp - SBAR form cp Signatures: Dispatcher [employer] EDMO Mirian Chaparro RN RN bb Page, Corey, PA PA cp Myles Gómez MD MD 7 Porsha Pham RN RN vc1 Corrections: (The following items were deleted from the chart) 00:23 11/24 23:35 This 46 yrs old Female presents to ER via EMS with complaints of Right cp Lower Leg Injury. cp 11/25 01:05 01:05 Normal except: RBC 3.31; HGB 9.9; HCT 30.0. cp cp 01:13 00:31 Doctor cp cp 01:17 00:59 COVID 19 CPL+MRHetalLAB.BRZ ordered. EDMO EDMO 01:55 01:13 DR Odilia Marie cp vc1 11/26 00:27 11/25 00:45 Physician consultation: Tony Courtney MD was contacted at 00:45, regarding cp consult, patient's condition, after a discussion of the case, a recommendation for transfer for higher level of care is made, due to significance of patient's injuries, cp
[2021-11-25] MEDS ORDERED: HYDROMORPHONE HCL 1 MG/ML INJ ONE (00:54)
[2021-11-25 03:33] VITALS: TEMP 98.5
[2021-11-25 03:46] VITALS: BP 135/85; O2SAT 98
--- NOTE | 2021-11-26 15:15 | RAD REPORT ---
EXAM DESCRIPTION: RAD - Tib Fib Right - 11/25/2021 12:12 am CLINICAL HISTORY: 46 years Female Pain COMPARISON: None TECHNIQUE: Four images of the tibia and fibula were obtained. FINDINGS: Spiral fracture distal tibial shaft with lateral displacement distal fracture fragment. Additional fractures diametaphyseal region distal fibula. Normal bony mineralization. No erosive or lytic lesions seen.. IMPRESSION: Fractures distal tibia and fibula. Electronically signed by: Viviane Cheung MD 11/25/2021 12:52 AM CDT Due to temporary technical issues with the PACS/Fluency reporting system, reports are being signed by the in house radiologist without review as a courtesy to ensure prompt reporting. The interpreting r adiologist is fully responsible for the content of the report.
== END 2021-11-25 01:55 | disposition short-term general hospital (02) ==
LOC: ER 23:18
PROC: 2W3LX1Z Immobilization of Right Lower Extremity using Splint (ICD-10-PCS; principal; 2021-11-25)
DX: S82.251A Displaced comminuted fracture of shaft of right tibia, initial encounter for closed fracture (principal); S82.831A Other fracture of upper and lower end of right fibula, initial encounter for closed fracture; W18.40XA Slipping, tripping and stumbling without falling, unspecified, initial encounter; Y93.01 Activity, walking, marching and hiking; Y92.89 Other specified places as the place of occurrence of the external cause; Z20.822 Contact with and (suspected) exposure to COVID-19; E03.9 Hypothyroidism, unspecified; Z91.040 Latex allergy status; Z91.048 Other nonmedicinal substance allergy status
CPT/HCPCS: 96361; 85025; 80048; 36415; 86900; 86850; 85610; 86901; 73590; 96374; 99285; 29505; U0003; J1170 ×2; J7030